=== PATIENT | male | born 1965 | race Two or more races ===

== ENCOUNTER 2022-04-02 11:23 | Outpatient (CLI) | payer OTHER | END 2022-04-02 11:39 | disposition home or self-care (01) | LOC: EDBD 11:23 → SONOGRAMA 11:23 | PROVIDERS: ATTEND Internal Medicine Hematology & Oncology | DX: N40.0 Benign prostatic hyperplasia without lower urinary tract symptoms (principal); C61 Malignant neoplasm of prostate ==

== ENCOUNTER 2024-02-05 05:32 | Day surgery (SDC) | payer OTHER ==
[2024-02-05] MEDS ORDERED: DIPHENHYDRAMINE HCL 50 MG/ML VIAL 1ML IV ONE (11:45)
[2024-02-05] MEDS ORDERED: ONDANSETRON HCL 2 MG/ML VIAL IV ONE (11:45)
[2024-02-05] MEDS ORDERED: MIDAZOLAM HCL 2 MG/2 ML VIAL IV ONE (11:45)
[2024-02-05] MEDS ORDERED: fentaNYL CITRATE 50 MCG/ML AMPUL IV PUSH ONE (11:45)
== END 2024-02-05 13:25 | disposition home or self-care (01) ==
LOC: AMB-ENDOS 05:32
PROVIDERS: ATTEND Colon & Rectal Surgery
DX: D12.2 Benign neoplasm of ascending colon (principal); D12.0 Benign neoplasm of cecum; K63.5 Polyp of colon; Z12.11 Encounter for screening for malignant neoplasm of colon

== ENCOUNTER 2024-07-11 09:05 | Emergency (ER) | payer OTHER ==
[~2024-07-11] VITALS: Ht 185.4 cm; Wt 70.8 kg
[2024-07-11] MEDS ORDERED: PEPCID AC20 MG PO (10:07)
[2024-07-11] MEDS ORDERED: KETO10TA2 PO (10:07)
[2024-07-11] MEDS ORDERED: CEFUROXIME500 MG PO (10:07)
== END 2024-07-11 11:00 | disposition home or self-care (01) ==
LOC: ER 09:06
DX: L02.31 Cutaneous abscess of buttock (principal); Z85.46 Personal history of malignant neoplasm of prostate

== ENCOUNTER 2024-08-05 10:55 | Emergency (ER) | payer OTHER ==
[~2024-08-05] VITALS: Ht 182.9 cm; Wt 72.6 kg
[~2024-08-05 10:55] MED LIST: CEFUROXIME500 MG PO; KETO10TA2 PO; PEPCID AC20 MG PO
[2024-08-05] MEDS ORDERED: KETOROLAC TROMETHAMINE 30 MG VIAL IM STA (11:33)
[2024-08-05] MEDS ORDERED: CEFTRIAXONE SODIUM 1,000 MG VIAL IM STA (11:33)
== END 2024-08-05 11:49 | disposition home or self-care (01) ==
LOC: ER 10:55
DX: L03.90 Cellulitis, unspecified (principal)